=== PATIENT | female | born 1940 | race Caucasian/White ===

== ENCOUNTER → 2023-01-05 | Outpatient (CLI) | payer OTHER ==
[~2023-01-05] MED LIST: AEC81 PO; ATOR10 PO; CALC-322 PO; CARV3.12 PO; CLOP-31 PO; ERGO400C PO; FURO20TA4 PO; LEVO50TA11 PO; LISI2.5T13 PO; POTA-200 PO
== END | disposition home or self-care (01) ==
LOC: RAH 15:08
PROVIDERS: ATTEND Urology
DX: N20.0 Calculus of kidney (principal)
CPT/HCPCS: 74018; 76100